=== PATIENT | female | born 1995 | race American Indian/Alaskan Native ===

== ENCOUNTER 2017-02-26 07:47 | Emergency (ER) | payer OTHER ==
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
[2017-02-26] MEDS ORDERED: NORCO 5/325 PO ONE (09:50)
[2017-02-26] MEDS ORDERED: FLEXERIL PO ONE (09:50)
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
[2017-02-26 13:00] VITALS: BP 98/57
== END 2017-02-26 12:46 | disposition home or self-care (01) ==
LOC: ED 07:47
DX: S06.0X1A Concussion with loss of consciousness of 30 minutes or less, initial encounter (principal); G44.319 Acute post-traumatic headache, not intractable; M54.2 Cervicalgia; M54.9 Dorsalgia, unspecified; Z88.8 Allergy status to other drugs, medicaments and biological substances; V49.49XA Driver injured in collision with other motor vehicles in traffic accident, initial encounter; Y92.488 Other paved roadways as the place of occurrence of the external cause; Y93.89 Activity, other specified; Y99.9 Unspecified external cause status
CPT/HCPCS: 70450; 72125

== ENCOUNTER 2017-06-03 09:18 | Emergency (ER) | payer SELFPAY ==
[2017-06-03 09:28] VITALS: BP 114/70
[2017-06-03] MEDS ORDERED: MOTRIN PO ONE (11:36)
[2017-06-03 11:37] LABS: Bilirubin,Urine NEG (Negative); Blood,Urine NEG (Negative); Ketones,Urine NEG (Negative); Leukocyte Esterase,Urine SM (Negative); Mucus,Urine 3+ /HPF; Nitrite,Urine NEG (Negative); Protein,Urine <15 mg/dL mg/dL (Negative); Urobilinogen,Urine < 2.0 mg/dL (<2.0)
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
--- NOTE | 2017-06-03 12:26 | XRay Report ---
Lumbar spine 2 views: History: Back pain. Findings: Normal height of vertebral bodies and intervertebral disc. Normal articular surfaces. No fracture. No soft tissue calcification. Impression: Essentially negative lumbar spine.
--- NOTE | 2017-06-03 12:27 | XRay Report ---
Thoracic spine 2 views: Findings: Mild scoliosis with convexity to left. Normal height of vertebral bodies and intervertebral disc. Normal articular surfaces. No paravertebral mass. Impression: Mild scoliosis.
== END 2017-06-03 12:45 | disposition home or self-care (01) ==
LOC: ED 09:18
DX: S39.012A Strain of muscle, fascia and tendon of lower back, initial encounter (principal); X58.XXXA Exposure to other specified factors, initial encounter; Y93.89 Activity, other specified; Y92.89 Other specified places as the place of occurrence of the external cause; Y99.8 Other external cause status
CPT/HCPCS: 72072; 72100; 81001; 81025

== ENCOUNTER 2019-04-02 20:12 | Emergency (ER) | payer OTHER, MEDICAID ==
[2019-04-02 21:17] VITALS: BP 106/68
[2019-04-02] MEDS ORDERED: ACETAMINOPHEN 325 MG TAB PO ONE (23:24)
[2019-04-02] MEDS ORDERED: IBUPROFEN 600 MG TAB PO ONE (23:24)
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
== END 2019-04-02 23:53 | disposition home or self-care (01) ==
LOC: ED 20:12
DX: M54.5 Low back pain (principal); Z88.1 Allergy status to other antibiotic agents; V89.2XXA Person injured in unspecified motor-vehicle accident, traffic, initial encounter; Y93.89 Activity, other specified; Y92.410 Unspecified street and highway as the place of occurrence of the external cause; Y99.8 Other external cause status
CPT/HCPCS: 99282

== ENCOUNTER 2020-12-17 03:11 | Emergency (ER) | payer MEDICAID, OTHER ==
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
== END 2020-12-17 07:38 | disposition home or self-care (01) ==
LOC: ED 03:11
CPT/HCPCS: 99282